=== PATIENT | female | born 1950 | race Caucasian/White ===

== ENCOUNTER 2016-09-19 10:24 | Day surgery (SDC) | payer OTHER ==
[~2016-09-19] VITALS: Ht 157.5 cm; Wt 84.1 kg
[~2016-09-19 10:24] MED LIST: CALCIUM 600 +1 EA13 PO; EYE VITAMIN-MI1 EACH PO; LIDODERM 5% P1 PATCH TD; LO-DOSE ASPIRIN81 M2 PO; NEURONTIN300 MG PO; ULTRAM50 MG PO
== END 2016-09-19 13:30 | disposition home or self-care (01) ==
LOC: PAIN 10:24 → SDC 11:15 → CATH 11:45 → PAIN 13:30
DX: M47.24 Other spondylosis with radiculopathy, thoracic region (principal); M62.838 Other muscle spasm; Z87.891 Personal history of nicotine dependence; R01.1 Cardiac murmur, unspecified; Z87.19 Personal history of other diseases of the digestive system; I35.1 Nonrheumatic aortic (valve) insufficiency; E78.5 Hyperlipidemia, unspecified; I10 Essential (primary) hypertension; R73.01 Impaired fasting glucose; I34.0 Nonrheumatic mitral (valve) insufficiency; Z79.82 Long term (current) use of aspirin; Z68.35 Body mass index [BMI] 35.0-35.9, adult; Z88.1 Allergy status to other antibiotic agents
CPT/HCPCS: J1030; J2250; J3010; S0020

== ENCOUNTER 2016-11-06 12:42 | Day surgery (SDC) | payer OTHER ==
[~2016-11-06] VITALS: Ht 157.5 cm; Wt 85.7 kg
[~2016-11-06 12:42] MED LIST changes: +MULTIPLE VITAM1 EAC1 PO; +VITAMIN D-32000 UNI2 PO
[2016-11-06] MEDS ORDERED: TYLENOL ARTHRI650 MG PO (13:08)
== END 2016-11-06 14:55 | disposition home or self-care (01) ==
LOC: PAIN 12:42 → SDC 13:30 → PAIN 13:30
DX: M51.14 Intervertebral disc disorders with radiculopathy, thoracic region (principal); I35.1 Nonrheumatic aortic (valve) insufficiency; M48.54XA Collapsed vertebra, not elsewhere classified, thoracic region, initial encounter for fracture; M62.838 Other muscle spasm; I10 Essential (primary) hypertension; M81.0 Age-related osteoporosis without current pathological fracture; I07.1 Rheumatic tricuspid insufficiency; Z87.891 Personal history of nicotine dependence; Z79.82 Long term (current) use of aspirin; Z79.891 Long term (current) use of opiate analgesic
CPT/HCPCS: J1030; J3010; S0020

== ENCOUNTER 2017-07-27 13:17 | Observation (INO) | payer OTHER ==
[~2017-07-27] VITALS: Ht 157.5 cm; Wt 87.9 kg
[~2017-07-27 13:17] MED LIST changes: +TYLENOL ARTHRI650 MG PO
[2017-07-27 15:01] LABS: HEMATOCRIT 41.1 % (36.0-46.0); HEMOGLOBIN 13.7 G/DL (11.9-15.5); MCH 29.7 PG (29.0-34.0); MCHC 33.3 G/DL (30.0-36.0); MCV 89.2 FL (83-99); PLATELET COUNT 345 K/uL (156-360); RBC DIS.WIDTH-CV 12.7 % (11.8-14.6); RBC DIS.WIDTH-SD 41.5 % (39-53); RED BLOOD COUNT 4.61 M/uL (3.80-5.20); WHITE BLOOD COUNT 7.3 K/uL (4.1-10.2)
[2017-07-27 15:14] LABS: CHLORIDE 106 mEq/L (99-109); POTASSIUM 4.5 mEq/L (3.7-5.4); SODIUM 138 mEq/L (136-147)
[2017-07-27 15:16] LABS: GLUCOSE 93 mg/dL (70-99)
[2017-07-27 15:19] LABS: CREATININE 0.8 mg/dL (0.6-1.3); GFR ESTIMATE (CALCULATED) > 59 mL/min/
[2017-07-27 15:20] LABS: UREA NITROGEN (BUN) 15 mg/dL (9-23)
[2017-07-27 15:21] LABS: TROP-I INTERPRETATION NEGATIVE; TROPONIN-I < 0.01 ng/mL (0.0-0.30)
[2017-07-27 22:25] LABS: TROP-I INTERPRETATION NEGATIVE; TROPONIN-I < 0.01 ng/mL (0.0-0.30)
[2017-07-28] MEDS ORDERED: GABAPENTIN300 MG PO (00:21)
[2017-07-28] MEDS ORDERED: TRAMADOL HCL50 MG PO (00:24)
[2017-07-28] MEDS ORDERED: LIDODERM 5% P1 PATCH TD (00:47)
[2017-07-28] MEDS ORDERED: CO Q-1010 MG PO (00:50)
[2017-07-28] MEDS ORDERED: ICAPS TABLET1 EACH PO (00:51)
[2017-07-28 10:32] LABS: TROP-I INTERPRETATION NEGATIVE; TROPONIN-I < 0.01 ng/mL (0.0-0.30)
[2017-07-28 10:39] LABS: APPEARANCE CLEAR ((CLEAR)); BILIRUBIN NEGATIVE; BLOOD NEGATIVE; COLOR STRAW ((YELLOW)); GLUCOSE (STRIP) NEGATIVE; KETONES NEGATIVE; LEUKOCYTES MODERATE; NITRITE NEGATIVE; PROTEIN (STRIP) NEGATIVE; SPECIFIC GRAVITY 1.023 (1.000-1.030); UROBILINOGEN 0.2 MG/DL (0.2-1.0)
[2017-07-28 10:43] LABS: BACTERIA NONE SEEN /HPF; EPITHELIAL CELLS RARE /HPF; MUCUS TRACE /LPF; RED BLOOD CELLS 0-5 /HPF (0-5); UCUL ADDED? YES
[2017-07-28 10:56] LABS: HDL CHOLESTEROL 51 MG/DL (Desirable>=50); LDL CHOLESTEROL 143 mg/dL (Desirable<100); NON-HDL CHOLESTEROL 163 mg/dL (Desirable<160); TOTAL CHOLESTEROL 214 mg/dL (Desirable<200); TRIGLYCERIDES 100 MG/DL (Normal: <150)
[2017-07-28 15:37] VITALS: BP 157/71
[2017-07-28 15:52] VITALS: BP 109/58
[2017-07-28] MEDS ORDERED: AMLODIPINE BESYL5 MG PO (17:43)
[2017-07-28] MEDS ORDERED: LOPRESSOR25 MG PO (17:47)
[2017-07-28] MEDS ORDERED: LIPITOR20 MG PO (17:49)
== END 2017-07-28 19:42 | disposition home or self-care (01) ==
LOC: EME 13:17 → EDOF 07-28 01:42 → ENRESERV 07-28 01:47 → 5WEST 07-28 15:33
PROVIDERS: Physician Assistant; Physician Assistant Medical
PROC: B246ZZZ Ultrasonography of Right and Left Heart (ICD-10-PCS; principal; 2017-07-28)
DX: I16.0 Hypertensive urgency (principal); I10 Essential (primary) hypertension; R42 Dizziness and giddiness; E78.5 Hyperlipidemia, unspecified; I35.0 Nonrheumatic aortic (valve) stenosis; I51.7 Cardiomegaly; M54.2 Cervicalgia; M79.602 Pain in left arm; R51 Headache; Z87.891 Personal history of nicotine dependence; K50.90 Crohn's disease, unspecified, without complications; Z79.82 Long term (current) use of aspirin
CPT/HCPCS: 70450; 71046; 71275; 72125; 80048; 80061; 81003; 84443; 84484; 85027; 87077; 87086; 87186; 93005; 93306; G0378; J1644

== ENCOUNTER 2018-02-01 10:31 | Day surgery (SDC) | payer OTHER ==
[~2018-02-01] VITALS: Ht 157.5 cm; Wt 83.9 kg
[~2018-02-01 10:31] MED LIST changes: +AMLODIPINE BESYL5 MG PO; +CO Q-1010 MG PO; +GABAPENTIN300 MG PO; +ICAPS TABLET1 EACH PO; +LIPITOR20 MG PO; +LOPRESSOR25 MG PO; +TRAMADOL HCL50 MG PO; +ZESTRIL10 MG PO
[2018-02-04] MEDS ORDERED: LIDODERM 5% P1 PATCH TD (13:21)
[2018-02-04] MEDS ORDERED: ULTRAM50 MG PO (13:22)
[2018-02-04] MEDS ORDERED: NEURONTIN300 MG PO (13:24)
[2018-02-04] MEDS ORDERED: METOPROLOL TART50 MG PO (13:24)
== END 2018-02-01 13:10 | disposition home or self-care (01) ==
LOC: PAIN 10:31 → SDC 11:15 → PAIN 13:10
DX: M47.814 Spondylosis without myelopathy or radiculopathy, thoracic region (principal); M54.14 Radiculopathy, thoracic region; Z79.82 Long term (current) use of aspirin; Z87.891 Personal history of nicotine dependence; I35.1 Nonrheumatic aortic (valve) insufficiency; I10 Essential (primary) hypertension; Z88.1 Allergy status to other antibiotic agents
CPT/HCPCS: J1030; J2250; J3010; S0020

== ENCOUNTER 2018-02-08 10:03 | Day surgery (SDC) | payer OTHER ==
[~2018-02-08] VITALS: Ht 157.5 cm; Wt 83.9 kg
[~2018-02-08 10:03] MED LIST changes: +METOPROLOL TART50 MG PO
== END 2018-02-08 12:30 | disposition home or self-care (01) ==
LOC: PAIN 10:03 → SDC 10:45 → PAIN 12:30
DX: M47.814 Spondylosis without myelopathy or radiculopathy, thoracic region (principal); M54.14 Radiculopathy, thoracic region; M81.0 Age-related osteoporosis without current pathological fracture; I10 Essential (primary) hypertension; I34.0 Nonrheumatic mitral (valve) insufficiency; I35.1 Nonrheumatic aortic (valve) insufficiency; Z87.891 Personal history of nicotine dependence; Z79.82 Long term (current) use of aspirin; Z79.891 Long term (current) use of opiate analgesic; Z88.1 Allergy status to other antibiotic agents
CPT/HCPCS: J1030; J2250; J3010; S0020